=== PATIENT | female | born 1970 | race Caucasian/White ===

== ENCOUNTER 2016-10-28 22:44 | Observation (INO) | payer MEDICAID ==
[~2016-10-28] VITALS: Ht 167.6 cm; Wt 67.0 kg
[~2016-10-28 22:44] MED LIST: ASPI81CH CHEW; ISOS10TA3 PO; LANTUS2P SQ; LOVA10TA PO; PLAV75TA29 PO; TRIA0.5O TOPICAL
[2016-10-28 22:51] VITALS: BP 144/76; PULSE 89; RESP 18; TEMP 98.6; O2SAT 99
[2016-10-28 22:56] VITALS: O2SAT 99
--- NOTE | 2016-10-28 22:57 | PD ---
HPI Chief Complaint: Chest Pain Time Seen by Provider: 22:52 Travel History International Travel<30 days: No Contact w/Intl Traveler<30days: No History of Present Illness HPI LEFT MEDIAL CHEST AREA PRESSURE, ONSET AT REST, 9/10 INTENSITY, NONRAD, SIMILAR TO PAIN THAT LEAD TO STENTS. NO ALLEVIATING/AGGRAVATING FACTORS. PFSH Past Medical History Asthma: Yes Cardiac Catheterization: Yes High Cholesterol: Yes Diabetes: Yes Fibromyalgia: Yes Hypertension: Yes Past Surgical History Coronary Stent: Yes (x3 ) Social History Alcohol Use: No Tobacco Use: No Substance Use: No Allergies-Medications (Allergen,Severity, Reaction): Coded Allergies: Morphine (Verified Allergy, Severe, 10/28/16) Imdur (Verified Allergy, Mild, 10/28/16) Actos (Verified Allergy, Unknown, 10/28/16) Lisinopril (Verified Allergy, Unknown, 10/28/16) Reported Meds & Prescriptions Reported Meds & Active Scripts Active Reported Metoprolol Tartrate 25 Mg Tab 25 Mg PO DAILY Gabapentin 100 Mg Cap 200 Mg PO HS Lovastatin 10 Mg Tab Unknown Dose PO DAILY Lantus Inj (Insulin Glargine) 1,000 Unit/10 Ml Vial 30 Units SQ HS Aspirin 81 Mg Chew 81 Mg CHEW DAILY Plavix (Clopidogrel Bisulfate) 75 Mg Tab 75 Mg PO DAILY Review of Systems Except as stated in HPI: all other systems reviewed are Neg Cardiovascular: Positive: Chest Pain or Discomfort Physical Exam Narrative GENERAL: SKIN: Warm and dry. HEAD: Atraumatic. Normocephalic. EYES: Pupils equal and round. No scleral icterus. No injection or drainage. ENT: No nasal bleeding or discharge. Mucous membranes pink and moist. NECK: Trachea midline. No JVD. CARDIOVASCULAR: Regular rate and rhythm. RESPIRATORY: No accessory muscle use. Clear to auscultation. Breath sounds equal bilaterally. GASTROINTESTINAL: Abdomen soft, non-tender, nondistended. Hepatic and splenic margins not palpable. MUSCULOSKELETAL: Extremities without clubbing, cyanosis, or edema. No obvious deformities. NEUROLOGICAL: Awake and alert. No obvious cranial nerve deficits. Motor grossly within normal limits. Five out of 5 muscle strength in the arms and legs. Normal speech. PSYCHIATRIC: Appropriate mood and affect; insight and judgment normal. Data Data Last Documented VS Vital Signs Date Time Temp Pulse Resp B/P Pulse Ox O2 Delivery O2 Flow Rate FiO2 10/29/16 00:01 Room Air 10/28/16 23:46 87 20 144/76 99 115/63 10/28/16 22:51 98.6 Orders Electrocardiogram (10/28/16 22:54) B-Type Natriuretic Peptide (10/28/16 22:54) Ckmb (Isoenzyme) Profile (10/28/16 22:54) Complete Blood Count With Diff (10/28/16 22:54) Comprehensive Metabolic Panel (10/28/16 22:54) D-Dimer (10/28/16 22:54) Magnesium (Mg) (10/28/16 22:54) Prothrombin Time / Inr (Pt) (10/28/16 22:54) Act Partial Throm Time (Ptt) (10/28/16 22:54) Troponin I (10/28/16 22:54) Lipase (10/28/16 22:54) Chest, Single Ap (10/28/16 22:54) Ecg Monitoring (10/28/16 22:54) Bilateral Bp Monitoring (10/28/16 22:54) Iv Access Insert/Monitor (10/28/16 22:54) Oximetry (10/28/16 22:54) Oxygen Administration (10/28/16 22:54) Aspirin Chew (Aspirin Chew) (10/28/16 23:15) Hydromorphone Pf Inj (Dilaudid Pf Inj) (10/28/16 23:15) Ct Pulmonary Angiogram (10/28/16 23:43) Ondansetron Inj (Zofran Inj) (10/29/16 00:00) Iohexol 350 Inj (Omnipaque 350 Inj) (10/29/16 00:20) Place In Observation (10/29/16 02:06) Activity Bed Rest With Brp (10/29/16 02:06) Vital Signs (Adult) Q4H (10/29/16 02:06) Cardiac Rhythm .As Directed (10/29/16 02:06) Notify Dr: Other .PRN (10/29/16 02:06) Notify Parameters (10/29/16 02:06) Resp Oxygen Nasal Cannula (10/29/16 ) Diet Heart Healthy (10/29/16 Breakfast) Ckmb (Isoenzyme) Profile (10/29/16 02:06) Ckmb (Isoenzyme) Profile (10/29/16 05:06) Troponin I (10/29/16 02:06) Troponin I (10/29/16 05:06) Electrocardiogram (10/29/16 02:06) Electrocardiogram (10/29/16 05:06) ^ Obtain (10/29/16 02:06) Sodium Chloride 0.9% Flush (Ns Flush) (10/29/16 09:00) Track Repair Worker / Telemetry VICTOR [email or web address] (10/29/16 02:06) Admit Order (Ed Use Only) (10/29/16 02:06) Labs Laboratory Tests Test 10/28/16 23:05 White Blood Count 10.3 TH/MM3 Red Blood Count 4.95 MIL/MM3 Hemoglobin 12.7 GM/DL Hematocrit 38.2 % Mean Corpuscular Volume 77.3 FL Mean Corpuscular Hemoglobin 25.6 PG Mean Corpuscular Hemoglobin 33.2 % Concent Red Cell Distribution Width 15.5 % Platelet Count 318 TH/MM3 Mean Platelet Volume 8.6 FL Neutrophils (%) (Auto) 68.4 % Lymphocytes (%) (Auto) 23.1 % Monocytes (%) (Auto) 4.9 % Eosinophils (%) (Auto) 2.8 % Basophils (%) (Auto) 0.8 % Neutrophils # (Auto) 7.1 TH/MM3 Lymphocytes # (Auto) 2.4 TH/MM3 Monocytes # (Auto) 0.5 TH/MM3 Eosinophils # (Auto) 0.3 TH/MM3 Basophils # (Auto) 0.1 TH/MM3 CBC Comment DIFF FINAL Differential Comment Prothrombin Time 9.8 SEC Prothromb Time International 0.9 RATIO Ratio Activated Partial 26.6 SEC Thromboplast Time D-Dimer Quantitative (PE/DVT) 0.68 MG/L FEU Sodium Level 138 MEQ/L Potassium Level 4.2 MEQ/L Chloride Level 104 MEQ/L Carbon Dioxide Level 27.0 MEQ/L Anion Gap 7 MEQ/L Blood Urea Nitrogen 17 MG/DL Creatinine 0.78 MG/DL Estimat Glomerular Filtration 80 ML/MIN Rate Random Glucose 212 MG/DL Calcium Level 9.1 MG/DL Magnesium Level 2.0 MG/DL Total Bilirubin 0.2 MG/DL Aspartate Amino Transf 18 U/L (AST/SGOT) Alanine Aminotransferase 17 U/L (ALT/SGPT) Alkaline Phosphatase 91 U/L Total Creatine Kinase 81 U/L Troponin I LESS THAN 0.02 NG/ML B-Type Natriuretic Peptide 7 PG/ML Total Protein 8.1 GM/DL Albumin 3.6 GM/DL Lipase 172 U/L MDM Medical Decision Making Medical Screen Exam Complete: Yes Emergency Medical Condition: Yes Medical Record Reviewed: Yes Interpretation(s) NSR 87, NL INTERVALS, NO STEMI PATTERN NOTED, NONSPEC STT CHANGES Differential Diagnosis HI V NONSTEMI V PTX V PNA V PE Narrative Course PT HAS CARDIAC RISK FACTORS AND ALTHOUGH FIRST SET OF TROPONIN NEG WILL ADMIT FOR OBS AND R/O HI. Diagnosis Primary Impression: CHEST PAIN R/O HI Admitting Information Admitting Physician Requests: Observation Willem Gavin MD Oct 28, 2016 22:57
[2016-10-28] MEDS ORDERED: GABA100C4 PO (22:59)
[2016-10-28 23:13] LABS: AUTOMATED NEUTROPHIL # 7.1 TH/MM3 (1.8-7.7); BASOPHIL # 0.1 TH/MM3 (0-0.2); BASOPHIL % 0.8 % (0.0-2.0); EOSINOPHIL # 0.3 TH/MM3 (0-0.4); EOSINOPHIL % 2.8 % (0.0-4.0); HEMATOCRIT 38.2 % (35.0-46.0); HEMO FLAGS DIFF FINAL; LYMPH % 23.1 % (9.0-44.0); LYMPHOCYTE # 2.4 TH/MM3 (1.0-4.8); MEAN CELL VOLUME 77.3 FL (80.0-100.0); MEAN CORPUSCULAR HEMOGLOBIN 25.6 PG (27.0-34.0); MEAN CORPUSCULAR HGB CONC 33.2 % (32.0-36.0); MONO % 4.9 % (0.0-8.0); NEUT % 68.4 % (16.0-70.0); PLATELET COUNT 318 TH/MM3 (150-450); RED BLOOD COUNT 4.95 MIL/MM3 (4.00-5.30); RED CELL DISTRIBUTION WIDTH 15.5 % (11.6-17.2); WHITE BLOOD COUNT 10.3 TH/MM3 (4.0-11.0)
[2016-10-28] MEDS ORDERED: ASPIRIN 81 MG CHEW TAB PO ONE (23:15)
--- NOTE | 2016-10-28 23:21 | RADRPT ---
EXAM DATE/TIME: 10/28/2016 23:07 [facility] COMPARISON: No previous studies available for comparison. INDICATIONS : Chest pain since midday today. MEDICAL HISTORY : Hypertension. Diabetes mellitus type II. SURGICAL HISTORY : None. Cardiac Stents. ENCOUNTER: Initial ACUITY: 1 day PAIN SCORE: 10/10 LOCATION: Bilateral chest FINDINGS: The lungs are clear without infiltrate, nodule, or mass. There is no appreciable pleural effusion fo r technique. Heart and mediastinum are unremarkable. CONCLUSION: No acute cardiopulmonary disease. Michael Salamanca MD on October 28, 2016 at 23:19 Board Certified Radiologist. This report was verified electronically.
[2016-10-28 23:25] LABS: APTT (PATIENT) 26.6 SEC (24.3-30.1); INTERNATIONAL NORMALIZED RATIO 0.9 RATIO; PROTHROMBIN TIME - PATIENT 9.8 SEC (9.8-11.6)
[2016-10-28 23:42] LABS: ALT (GPT) 17 U/L (10-53); ANION GAP 7 MEQ/L (5-15); AST (GOT) 18 U/L (15-37); BLOOD UREA NITROGEN 17 MG/DL (7-18); CHLORIDE 104 MEQ/L (98-107); GLOMERULAR FILTRATION RATE 80 ML/MIN (>89); POTASSIUM 4.2 MEQ/L (3.5-5.1); SODIUM (NA) 138 MEQ/L (136-145)
[2016-10-28] MEDS: HYDROmorphone HCL PF 1 MG/ML VIAL IV PUSH ONE ×2 (23:44→23:56)
[2016-10-28 23:46] VITALS: BP_SYST 115; BP_SYST 144; BP_DIAS 63; BP_DIAS 76; PULSE 87; RESP 20; O2SAT 99
[2016-10-28 23:47] LABS: ALKALINE PHOSPHATASE 91 U/L (45-117); CREATINE KINASE 81 U/L (26-192); TOTAL BILIRUBIN ADULT 0.2 MG/DL (0.2-1.0)
[2016-10-29] MEDS ORDERED: ONDANSETRON HCL 4 MG/2 ML VIAL IV PUSH ONE
[2016-10-29] MEDS ORDERED: IOHEXOL 350 MG/ML 10 ML VIAL (for RAD DIAG) IV ONE (00:20)
--- NOTE | 2016-10-29 00:58 | RADRPT ---
EXAM DATE/TIME: 10/29/2016 00:06 [facility] COMPARISON: CHEST SINGLE AP, October 28, 2016, 23:07. INDICATIONS : Left side chest pain. IV CONTRAST: 65 cc Omnipaque 350 (iohexol) IV RADIATION DOSE: 11.58 CTDIvol (mGy) MEDICAL HISTORY : Hypertension. Asthma. Diabetes. SURGICAL HISTORY : Coronary artery stent. Hysterectomy.Cardiac cath. ENCOUNTER: Initial ACUITY: 3 days PAIN SCALE: 9/10 LOCATION: Left chest TECHNIQUE: Volumetric scanning of the chest was performed using a pulmonary embolism protocol MIP images were re constructed. Using automated exposure control and adjustment of the mA and/or kV according to patien t size, radiation dose was kept as low as reasonably achievable to obtain optimal diagnostic quality images. DICOM format image data is available electronically for review and comparison. FINDINGS: The lungs are clear without infiltrate, nodule, or mass. There is no pleural effusion. No appreciab le pathological adenopathy is seen within the mediastinum. There is no evidence for PE for technique. Evidence for prior granulomatous exposure. CONCLUSION: Unremarkable study. Michael Salamanca MD on October 29, 2016 at 0:54 Board Certified Radiologist. This report was verified electronically.
[2016-10-29 03:21] VITALS: BP 113/67; PULSE 77; RESP 18; O2SAT 98
[2016-10-29 04:08] LABS: CREATINE KINASE 66 U/L (26-192)
[2016-10-29 04:21] VITALS: PULSE 73
[2016-10-29 05:49] VITALS: BP 121/67; PULSE 74; RESP 18; TEMP 98.1; O2SAT 97
[2016-10-29 06:29] LABS: CREATINE KINASE 62 U/L (26-192)
[2016-10-29 07:45] VITALS: BP 113/59; PULSE 64; RESP 17; TEMP 96.1; O2SAT 96
[2016-10-29 08:00] VITALS: PULSE 67; O2SAT 99
--- NOTE | 2016-10-29 08:27 | EKG ---
Date Performed: 10/29/2016 Time Performed: 05:22:02 PTAGE: 46 years EKG: Sinus rhythm Borderline NONSPECIFIC ST & T-WAVE ABNORMALITY BORDERLINE ECG NO SIGNIFICANT CHANGE FROM PRIOR ELECT ROCARDIOGRAM. PREVIOUS TRACING : 10/28/2016 22.53 DOCTOR: Pino Aponte Interpretating Date/Time 10/29/2016 08:27:21
--- NOTE | 2016-10-29 08:30 | EKG ---
Date Performed: 10/29/2016 Time Performed: 03:17:56 PTAGE: 46 years EKG: Sinus rhythm NORMAL ECG WARNING: DATA QUALITY MAY AFFECT INTERPRETATION NO PREVIOUS TRACING DOCTOR: Pino Aponte Interpretating Date/Time 10/29/2016 08:29:12
--- NOTE | 2016-10-29 08:45 | HHI.HP ---
HPI Primary Care Physician Non-Staff Chief Complaint Chest pain History of Present Illness This is a 46-year-old female that presents to ED via private vehicle with stated history of CAD with history of 3 stents. She presents complaining of a chest discomfort and describes as a stabbing/throbbing sensation in the center of her chest. She had several episodes intermittently yes or lasting each about 15 minutes. She cannot recall how many episodes she had or the intensity level. She does stated did feel little similar to when she needed stents last. She says heart catheterization with stenting was in October 2015 in [place]. States she has been compliant with medications. Currently is asymptomatic. She does not follow with a mechanic on an outpatient basis. Review of Systems General: Patient denies fevers, chills recent, and recent travel HEENT: Patient denies headache, sore throat, difficulty swallowing. Cardiovascular: Has the chest discomfort as mentioned above. Denies sensation of heart beating rapidly or irregularly. No syncope. Denies diaphoresis. Respiratory: Occasional shortness of breath. Denies inspirational chest discomfort. Denies coughing wheezing or hemoptysis. GI: Patient denies nausea, vomiting, diarrhea, abdominal pain, bloody stools. Musculoskeletal: Patient denies joint pain or edema. Denies calf pain or edema. Neurovascular: Patient denies numbness, tingling, weakness in extremities. Denies headache. Endocrine: Denies polyuria and polydipsia. Hematologic: Denies easy bruising. Skin: Denies rash or itching. Past Family Social History Allergies: Coded Allergies: Morphine (Verified Allergy, Severe, 10/28/16) Imdur (Verified Allergy, Mild, 10/28/16) Actos (Verified Allergy, Unknown, 10/28/16) Lisinopril (Verified Allergy, Unknown, 10/28/16) Past Medical History Stated history of CAD with 3 stents. Hyperlipidemia and diabetes. Denies hypertension. Past Surgical History Multiple heart catheterizations was stated 3 stents. Reported Medications Reported Meds & Active Scripts Active Reported Gabapentin 100 Mg Cap 200 Mg PO HS Lovastatin 10 Mg Tab Unknown Dose PO DAILY Lantus Inj (Insulin Glargine) 1,000 Unit/10 Ml Vial 30 Units SQ HS Isosorbide Mononitrate 10 Mg Tab Unknown Dose PO BID Take 2 doses 7 hours apart. Aspirin 81 Mg Chew 81 Mg CHEW DAILY Plavix (Clopidogrel Bisulfate) 75 Mg Tab 75 Mg PO DAILY Active Ordered Medications Current Medications Medications (Trade) Dose Ordered Sig/Tu Route Start Time Stop Time Status Last Admin (NS Flush) 2 ml BID IV FLUSH 10/29/16 09:00 Family History Denies family history of CAD. Social History Patient denies tobacco abuse, illicit drug use, or alcohol use. Physical Exam Vital Signs Vital Signs Date Time Temp Pulse Resp B/P Pulse Ox O2 Delivery O2 Flow Rate FiO2 10/29/16 08:00 99 10/29/16 07:45 96.1 64 17 113/59 96 10/29/16 05:49 98.1 74 18 121/67 97 10/29/16 04:21 73 10/29/16 03:21 77 18 113/67 98 Room Air 10/29/16 00:01 Room Air 10/28/16 23:46 87 20 144/76 99 Room Air 115/63 10/28/16 22:56 100 Room Air 10/28/16 22:56 99 Room Air 10/28/16 22:51 98.6 89 18 144/76 99 Physical Exam GENERAL: This is a well-nourished, well-developed patient, in no apparent distress. Patient speaks in clear complete sentences. Patient is pleasant. She is resting comfortably in hospital bed with 2 other family members in the bed. HEENT: Head is atraumatic and normocephalic. Neck is supple without lymphadenopathy and trachea is midline. No JVD or carotid bruits. CARDIOVASCULAR: Regular rate and rhythm without murmurs, gallops, or rubs. RESPIRATORY: Clear to auscultation. Breath sounds equal bilaterally. No wheezes , rales, or rhonchi. Chest wall is nontender. No use of accessory muscles. GASTROINTESTINAL: Abdomen is nontender, nondistended. Abdomen soft. No obvious pulsatile mass or bruit. No CVA tenderness. Strong femoral pulses bilaterally. Normal bowel sounds in all quadrants. MUSCULOSKELETAL: Patient is moving upper and lower extremities freely. No calf tenderness or edema, no Homans sign. Strong pulses in upper and lower extremities. NEUROLOGICAL: Patient is alert and oriented. Cranial nerves 2-12 are grossly intact. No focal deficits and speech is clear. SKIN: No rash and turgor is normal. Laboratory Laboratory Tests Test 10/28/16 10/29/16 10/29/16 23:05 03:13 05:15 White Blood Count 10.3 Red Blood Count 4.95 Hemoglobin 12.7 Hematocrit 38.2 Mean Corpuscular Volume 77.3 Mean Corpuscular Hemoglobin 25.6 Mean Corpuscular Hemoglobin 33.2 Concent Red Cell Distribution Width 15.5 Platelet Count 318 Mean Platelet Volume 8.6 Neutrophils (%) (Auto) 68.4 Lymphocytes (%) (Auto) 23.1 Monocytes (%) (Auto) 4.9 Eosinophils (%) (Auto) 2.8 Basophils (%) (Auto) 0.8 Neutrophils # (Auto) 7.1 Lymphocytes # (Auto) 2.4 Monocytes # (Auto) 0.5 Eosinophils # (Auto) 0.3 Basophils # (Auto) 0.1 CBC Comment DIFF FINAL Differential Comment Prothrombin Time 9.8 Prothromb Time International 0.9 Ratio Activated Partial 26.6 Thromboplast Time D-Dimer Quantitative (PE/DVT) 0.68 Sodium Level 138 Potassium Level 4.2 Chloride Level 104 Carbon Dioxide Level 27.0 Anion Gap 7 Blood Urea Nitrogen 17 Creatinine 0.78 Estimat Glomerular Filtration 80 Rate Random Glucose 212 Calcium Level 9.1 Magnesium Level 2.0 Total Bilirubin 0.2 Aspartate Amino Transf 18 (AST/SGOT) Alanine Aminotransferase 17 (ALT/SGPT) Alkaline Phosphatase 91 Total Creatine Kinase 81 66 62 Troponin I LESS THAN 0.02 LESS THAN 0.02 LESS THAN 0.02 B-Type Natriuretic Peptide 7 Total Protein 8.1 Albumin 3.6 Lipase 172 Result Diagram: 10/28/16230410/28/16 230 Imaging Last [address] Angiography 10/28/16 2340 Signed Impressions: Service Date/Time: Saturday, October 29, 2016 00:06 - CONCLUSION: Unremarkable study. Michael Salamanca MD Chest X-Ray 10/28/16 1216 Signed Impressions: Service Date/Time: September 23:07 - CONCLUSION: No acute cardiopulmonary disease. Michael Salamanca MD Course EKGs have sinus rhythm without significant ST segment depressions or elevations. Assessment and Plan Assessment and Plan * Chest pain: Patient has had serial cardiac enzymes and EKGs for ruling out purposes. She has been seen by Dr. Rafita Lacey of cardiology in the chest pain center and will undergo a Lexiscan if her beta is negative. She'll be discharged home if stress test is nonischemic. She'll be advised to continue her medications. * Stated CAD: We'll reassess with stress testing. She should follow-up with her mechanic. * Diabetes: We'll cover with sliding scale coverage and she should resume her medication at discharge. She should follow diabetic diet. * Hyperlipidemia: Continue current medications. Patient is stable this time. She is agreeable to this plan. Chito Lai Oct 29, 2016 08:45
[2016-10-29] MEDS ORDERED: METO25TA3 PO (08:59)
[2016-10-29] MEDS ORDERED: GLUCAGON 1 MG/ML VIAL IM/SQ PRN (09:00)
[2016-10-29] MEDS ORDERED: DEXTROSE 50% IN WATER 50 ML VIAL(D50) IV PRN (09:00)
[2016-10-29] MEDS ORDERED: SODIUM CHLORIDE 0.9% FLUSH 10 ML FLUSH IV FLUSH SCH (09:00)
[2016-10-29] MEDS ORDERED: INSULIN ASPART SUPPLEMENTAL SCALE SQ SCH (11:00)
--- NOTE | 2016-10-29 11:35 | EKG ---
Date Performed: 10/28/2016 Time Performed: 22:53:10 PTAGE: 46 years EKG: Sinus rhythm NORMAL ECG NO PREVIOUS TRACING DOCTOR: Pino Aponte Interpretating Date/Time 10/29/2016 11:34:33
[2016-10-29] MEDS ORDERED: LORazepam 0.5 MG TAB PO ONE (12:00)
[2016-10-29] MEDS ORDERED: REGADENOSON INJ 0.4 MG/5 ML SYR ONE (12:17)
--- NOTE | 2016-10-29 13:51 | RADRPT ---
EXAM DATE/TIME: 10/29/2016 11:40 [facility] COMPARISON: No previous studies available for comparison. INDICATIONS : Left chest pain. Angina. DOSE: 25.5 mCi Tc99m Myoview at stress. 8.1 mCi Tc99m Myoview at rest. 0.4 mg Lexiscan STRESS SYMPTOMS: Nausea. EJECTION FRACTION: 66% MEDICAL HISTORY : Cardiovascular disease. Hypertension. Diabetes mellitus type 2. SURGICAL HISTORY : Hysterectomy. Coronary artery stent. Cardiac cath and back surgery. ENCOUNTER: Initial ACUITY: 1 day PAIN SCALE: 9/10 LOCATION: Left chest TECHNIQUE: The patient underwent pharmacologic stress with infusion of prescribed dose. Continuous ECG tracing was monitored during stress. Gated SPECT imaging was performed after stress and conventional SPECT i maging was performed at rest. The examination was performed on a SPECT/CT scanner, both attenuation and non-corrected datasets were reviewed. FINDINGS: DISTRIBUTION: The maximum perfused segment at stress is in the inferior wall. PERFUSION STUDY: The pattern of perfusion at stress is within normal limits. GATED STUDY: There is intact wall motion and thickening without hypokinetic or dyskinetic segments. CONCLUSION: 1. No significant reversible perfusion defects. 2. No focal wall motion abnormality with EF of 66%. RISK CATEGORY: 1. Low risk (< 1% annual mortality rate) Gurpreet Jones MD on October 29, 2016 at 13:46 Board Certified Radiologist. This report was verified electronically.
--- NOTE | 2016-10-29 13:57 | HHI.DCPOC ---
Discharge Care Plan Diagnosis: (1) Chest pain (2) CAD (coronary artery disease) (3) H/O heart artery stent (4) DM (diabetes mellitus) (5) Hyperlipidemia Goals to Promote Your Health * To prevent worsening of your condition and complications * To maintain your health at the optimal level Directions to Meet Your Goals Take your medications as prescribed Follow your dietary instruction Follow activity as directed Keep your appointments as scheduled Take your immunizations and boosters as scheduled If your symptoms worsen call your PCP, if no PCP go to Urgent Care Center or Emergency Room Smoking is Dangerous to Your Health. Avoid second hand smoke Call the 24-hour hour crisis hotline for domestic abuse at Chito Lai Oct 29, 2016 13:57
--- NOTE | 2016-10-29 15:25 | TR ---
Date Performed: 10/29/2016 Time Performed: 12:20:56 DOCTOR: Rafita Lacey DRUG LIST: CLINICAL HISTORY: ANGINA REASON FOR TEST: Angina REASON FOR ENDING: OBSERVATION: CONCLUSION: Lexiscan stress test was performed under standard four minute protocol. Radionuclid e was injected one minute prior to ending the test. No electrocardiographic abormalities were present to suggest ischemia. Nuclear imaging and interpretation are pending. COMMENTS:
== END 2016-10-29 15:30 | disposition home or self-care (01) ==
LOC: NEPC 22:44 → NEDA 10-29 02:10 → NEPFCDU 10-29 03:48
PROVIDERS: ADMIT Internal Medicine Cardiovascular Disease; ATTEND Internal Medicine Cardiovascular Disease
DX: R07.9 Chest pain, unspecified (principal); R06.02 Shortness of breath; I25.119 Atherosclerotic heart disease of native coronary artery with unspecified angina pectoris; I10 Essential (primary) hypertension; E11.9 Type 2 diabetes mellitus without complications; E78.5 Hyperlipidemia, unspecified; J45.909 Unspecified asthma, uncomplicated; E78.00 Pure hypercholesterolemia, unspecified; M79.7 Fibromyalgia; Z95.5 Presence of coronary angioplasty implant and graft; Z79.899 Other long term (current) drug therapy; Z79.82 Long term (current) use of aspirin; Z79.02 Long term (current) use of antithrombotics/antiplatelets
CPT/HCPCS: 71010; 71275; 78452; 80053; 82550; 83690; 83735; 83880; 84484; 85025; 85379; 85610; 85730; 93005; 93017; 96374; 96375; 99285; A9502; G0378; J1170; J2405; J2785; Q9967

== ENCOUNTER 2016-11-19 22:59 | Emergency (ER) | payer SELFPAY ==
[~2016-11-19] VITALS: Ht 167.6 cm; Wt 66.0 kg
[~2016-11-19 22:59] MED LIST changes: +GABA100C4 PO; -ISOS10TA3 PO; +METO25TA3 PO; -TRIA0.5O TOPICAL
[2016-11-19 23:00] VITALS: BP 142/67; PULSE 106; RESP 16; TEMP 98.5; O2SAT 100
[2016-11-20] MEDS ORDERED: PLAV75TA29 PO (01:25)
[2016-11-20] MEDS ORDERED: ASPI81CH CHEW (01:25)
[2016-11-20] MEDS ORDERED: METO25TA3 PO ×2 (01:26)
[2016-11-20] MEDS ORDERED: GABA100C4 PO (01:26)
[2016-11-20] MEDS ORDERED: LOVA10TA PO (01:26)
[2016-11-20] MEDS ORDERED: LANTUS2P SQ (01:26)
[2016-11-20] MEDS ORDERED: OMEP10CA PO (01:27)
[2016-11-20] MEDS ORDERED: CLIN1CAP5 PO (03:22)
== END 2016-11-19 23:12 | disposition left against medical advice (07) ==
LOC: NED 22:59
DX: Z53.9 Procedure and treatment not carried out, unspecified reason (principal)
CPT/HCPCS: 99281